=== PATIENT | female | born 2000 | race Two or more races ===

== ENCOUNTER 2021-06-01 14:56 | Emergency (ER) | payer OTHER ==
[~2021-06-01] VITALS: Ht 167.6 cm; Wt 63.5 kg
[2021-06-01 15:15] VITALS: BP 124/92
[2021-06-01] MEDS ORDERED: diphenhydrAMINE HCL 50 MG/ML VIAL IV ONE (15:30)
[2021-06-01] MEDS ORDERED: PROCHLORPERAZINE EDISYLATE 10 MG/2 ML VIAL IVP ONE (15:30)
[2021-06-01] MEDS ORDERED: IV NS 0.9% 1,000 ML BAG IV ONE (15:30)
[2021-06-01] MEDS ORDERED: DEXAMETHASONE SOD PHOSPHATE 10 MG/ML VIAL IV ONE (15:30)
[2021-06-01] MEDS ORDERED: KETOROLAC TROMETHAMINE INJ 30 MG/ML VIAL IV ONE (15:30)
[2021-06-01 15:55] LABS: BASOPHILS % (AUTO) 0.3 % (0.0-2.0); EOSINOPHILS % (AUTO) 0.4 % (0.0-6.0); HEMATOCRIT 43 % (33-45); HEMOGLOBIN 14.7 g/dL (11.5-14.8); LYMPHOCYTES # (AUTO) 1.6 K/uL (0.8-4.8); LYMPHOCYTES % (AUTO) 22.3 % (20.0-44.0); MEAN CORPUSCULAR HGB CONC 35 g/dl (31.0-36.0); MEAN CORPUSCULAR VOLUME 90 fL (82-100); MONOCYTES # (AUTO) 0.4 K/uL (0.1-1.30); MONOCYTES % (AUTO) 6.1 % (2.0-12.0); NEUTROPHILS # (AUTO) 5.1 K/uL (1.8-8.9); NEUTROPHILS % (AUTO) 70.9 % (43.0-81.0); PLATELET COUNT (AUTO) 265 K/uL (150-450); RED BLOOD CELL COUNT(AUTO) 4.75 MIL/uL (4.0-5.2); WHITE BLOOD COUNT (AUTO) 7.2 K/uL (4.3-11.0)
[2021-06-01 16:08] LABS: ALBUMIN 4.6 g/dL (3.4-5.0); BILIRUBIN,DIRECT 0.2 mg/dL (0.0-0.2); BILIRUBIN,TOTAL 0.9 mg/dL (0.2-1.0); CALCIUM, SERUM 9.2 mg/dL (8.5-10.1); CREATININE 0.8 mg/dL (0.6-1.3); POTASSIUM 3.8 mmol/L (3.5-5.1); TOTAL PROTEIN, SERUM 8.5 g/dL (6.4-8.2)
--- NOTE | 2021-06-01 16:14 | NUR ---
[facility] CONFIRMED THEY HAVE PT'S URINE SAMPLE
[2021-06-01] MEDS ORDERED: diphenhydrAMINE HCL 50 MG/ML VIAL ONE (16:18)
[2021-06-01] MEDS ORDERED: DEXAMETHASONE SOD PHOSPHATE 10 MG/ML VIAL ONE (16:18)
[2021-06-01] MEDS ORDERED: KETOROLAC TROMETHAMINE INJ 30 MG/ML VIAL ONE (16:19)
[2021-06-01] MEDS ORDERED: PROCHLORPERAZINE EDISYLATE 10 MG/2 ML VIAL ONE (16:19)
[2021-06-01 16:28] LABS: BILIRUBIN,URINE Negative (NEGATIVE); COLOR,URINE YELLOW (YELLOW); LEUKOCYTE ESTERASE ,URINE Small (NEGATIVE); NITRITE, URINE Negative (NEGATIVE); PH,URINE 5.5 (5.0-8.0); PROTEIN,URINE Negative (NEGATIVE); UGLUCOSE Negative (NEGATIVE); UROBILINOGEN,URINE 0.2 EU/dL (0.2)
[2021-06-01 16:34] LABS: BACTERIA,URINE Few /HPF (None Seen); RBC,URINE 21-50 /HPF (0-2); SQUAMOUS EPITHELIAL CELL,UR Few /HPF (None Seen)
[2021-06-01] MEDS ORDERED: NAPR500T6 PO (17:00)
--- NOTE | 2021-06-01 17:05 | NUR ---
IV removed. Catheter intact and site benign. Pressure and 4x4 applied to site. No bleeding noted.Patient discharged to home in stable condition. Written and verbal after care instructions given. Patient verbalizes understanding of instruction.
== END 2021-06-01 17:15 | disposition home or self-care (01) ==
LOC: ER 14:59
DX: R51.9 Headache, unspecified (principal); Z20.822 Contact with and (suspected) exposure to COVID-19
CPT/HCPCS: 36415; 71045; 80048; 80076; 81001; 84703; 85025; 87077; 87086; 87186; 87426; 93005; 96361; 96374; 96375; 99285; C9803; J0780; J1100; J1200; J1885; J7030

== ENCOUNTER 2021-11-23 19:33 | Emergency (ER) | payer OTHER ==
[~2021-11-23] VITALS: Ht 167.6 cm; Wt 61.2 kg
[~2021-11-23 19:33] MED LIST: NAPR500T6 PO
[2021-11-23 20:21] VITALS: BP 129/88
[2021-11-23] MEDS ORDERED: ACETAMINOPHEN 650 MG/20.3 ML UDC PO ONE (20:30)
[2021-11-23] MEDS ORDERED: KETOROLAC TROMETHAMINE INJ 60 MG/2 ML VIAL IM ONE (20:30)
[2021-11-23] MEDS ORDERED: KETOROLAC TROMETHAMINE INJ 30 MG/ML VIAL ONE (20:57)
[2021-11-23] MEDS ORDERED: ACETAMINOPHEN ES 500 MG TABLET ONE (20:57)
[2021-11-23] MEDS ORDERED: NAPR-1164 PO (21:58)
== END 2021-11-23 22:11 | disposition home or self-care (01) ==
LOC: ER 19:38
DX: S83.8X1A Sprain of other specified parts of right knee, initial encounter (principal); X58.XXXA Exposure to other specified factors, initial encounter; Y93.89 Activity, other specified; Y92.89 Other specified places as the place of occurrence of the external cause; Y99.8 Other external cause status
CPT/HCPCS: 29505; 73564; 96372; 99283; J1885

== ENCOUNTER 2022-04-12 17:50 | Emergency (ER) | payer OTHER ==
[~2022-04-12] VITALS: Ht 165.1 cm; Wt 67.1 kg
[~2022-04-12 17:50] MED LIST changes: +NAPR-1164 PO
[2022-04-12] MEDS ORDERED: P-EPHED SUL/LORATADINE (24H) 1 TAB.SR.24H PO SCH (18:30)
[2022-04-12] MEDS ORDERED: LORATADINE 10 MG TABLET ONE (19:54)
[2022-04-12 20:16] VITALS: BP 116/70
[2022-04-12] MEDS ORDERED: P-EP1TBM2 PO (20:16)
== END 2022-04-12 20:20 | disposition home or self-care (01) ==
LOC: ER 17:51
DX: J06.9 Acute upper respiratory infection, unspecified (principal); B97.89 Other viral agents as the cause of diseases classified elsewhere; Z20.822 Contact with and (suspected) exposure to COVID-19
CPT/HCPCS: 99284; 71045; 87426; 87804; C9803

== ENCOUNTER 2022-05-14 18:32 | Emergency (ER) | payer OTHER ==
[~2022-05-14] VITALS: Ht 167.6 cm; Wt 63.5 kg
[~2022-05-14 18:32] MED LIST changes: +P-EP1TBM2 PO
[2022-05-14 18:47] VITALS: BP 112/67
[2022-05-14] MEDS ORDERED: IBUPROFEN 400 MG TABLET ONE (19:52)
[2022-05-14] MEDS ORDERED: IBUPROFEN 400 MG TABLET PO ONE (20:00)
--- NOTE | 2022-05-14 20:04 | NUR ---
Patient discharged to home in stable condition. Written and verbal after care instructions given. Patient verbalizes understanding of instruction. Pt ambulatory with a steady gait
== END 2022-05-14 20:12 | disposition home or self-care (01) ==
LOC: ER 18:34
DX: J32.9 Chronic sinusitis, unspecified (principal); Z79.899 Other long term (current) drug therapy
CPT/HCPCS: 70486-TC

== ENCOUNTER 2024-03-15 10:59 | Emergency (ER) | payer OTHER ==
[~2024-03-15] VITALS: Ht 167.6 cm; Wt 54.4 kg
[2024-03-15] MEDS ORDERED: FLUORESCEIN SODIUM OPHTH 1 EA STRIP ONE (13:25)
[2024-03-15] MEDS: FLUORESCEIN SODIUM OPHTH 1 EA STRIP OP ONE (13:29)
[2024-03-15] MEDS ORDERED: OFLO5DRO RIGHTEYE (13:34)
[2024-03-15] MEDS ORDERED: POLY15DR31 RIGHTEYE (14:02)
[2024-03-15 14:49] VITALS: BP 117/65; TEMP 98.4; O2SAT 98
== END 2024-03-15 14:50 | disposition home or self-care (01) ==
LOC: ER 10:59
DX: H10.9 Unspecified conjunctivitis (principal); Z79.899 Other long term (current) drug therapy